=== PATIENT | female | born 1970 | race Caucasian/White ===

== ENCOUNTER 2019-11-15 11:48 | Day surgery (SDC) | payer OTHER ==
[~2019-11-15] VITALS: Ht 154.9 cm; Wt 126.5 kg
[~2019-11-15 11:48] MED LIST: SODIUM CHLORIDE 0.9% 1,000 ML IV ONE; SODIUM CHLORIDE 0.9% 1,000 ML ONE
[2019-11-15] MEDS ORDERED: PROPOFOL 1% 20 ML VIAL IVP ONE (11:49)
[2019-11-15] MEDS ORDERED: ARIP5TAB8 PO (13:03)
[2019-11-15] MEDS ORDERED: IBUP-2070 PO (13:03)
[2019-11-15] MEDS ORDERED: BUSP5TAB20 PO (13:03)
[2019-11-15] MEDS ORDERED: CALC-789 PO (13:03)
[2019-11-15] MEDS ORDERED: CYCL5TAB PO (13:03)
[2019-11-15] MEDS ORDERED: LACT1CAP70 PO (13:03)
[2019-11-15] MEDS ORDERED: RANI150T7 PO (13:03)
[2019-11-15] MEDS ORDERED: DULO60CA44 PO (13:04)
[2019-11-15] MEDS ORDERED: DICL2100G TP (13:04)
== END 2019-11-15 15:45 | disposition home or self-care (01) ==
LOC: SURGERY 11:48
PROVIDERS: ATTEND Student in an Organized Health Care Education/Training Program
DX: Z12.11 Encounter for screening for malignant neoplasm of colon (principal); K57.30 Diverticulosis of large intestine without perforation or abscess without bleeding; K64.8 Other hemorrhoids; K64.4 Residual hemorrhoidal skin tags; E66.01 Morbid (severe) obesity due to excess calories; Z68.43 Body mass index [BMI] 50.0-59.9, adult; Z88.8 Allergy status to other drugs, medicaments and biological substances; Z88.5 Allergy status to narcotic agent; Z72.89 Other problems related to lifestyle; F17.290 Nicotine dependence, other tobacco product, uncomplicated
CPT/HCPCS: 45378; J2704; J7030